=== PATIENT | female | born 1960 | race Caucasian/White ===

== ENCOUNTER 2019-10-19 14:00 | Outpatient (RCR) | payer BC, OTHER, SELFPAY ==
[2019-07-26 12:36] VITALS: BP_SYST 90
--- NOTE | 2019-07-26 13:52 | PTOPEVAL ---
Thank you for referring Heriberto Daley to [facility]. Please review, sign, date and return this plan of care BRIGITTE. Pt seen for physical therapy evaluation due to right shoulder impairment. She demonstrates decreased shoulder range, decreased strength, increased pain and decreased UE function with daily activities. She requires additional skilled PT 2-3x/wk x 8 wk to return right UE to her PLOF. I agree with and certify that the following plan of care is medically necessary. Referring Physician Date Attending Provider: Blake Lazcano MD *PT Outpatient Evaluation Start: 07/26/19 12:39 Freq: Status: Active Protocol: Document 07/26/19 12:36 CAP (Rec: 07/26/19 13:36 CAP [id number]) Therapy Assessment Status Assessment Status Assessment Status Evaluation Outpatient Past Medical History Past Medical History Source of Past Medical History Patient Neurological History Hx Cerebrovascular Accident (CVA) Yes: 12 years Cardiovascular History Hx Hypertension Yes Musculoskeletal History Hx Other Musculoskeletal Disorders Yes: broken left foot 12/02 Endocrine History Hx Diabetes Yes Other History Hx Cancer Yes: skin cancer Evaluation Information Problem Diagnosis right shoulder lession Onset 06/30/19 Cause increased activities Additional Evaluation Detail She reports she has decreased balance and fine motor ability on left since her stroke. Subjective Information She was painting and weeding Query Text:As Reported By Patient/ the yard back in June. She felt Family like she pulled a muscle that was not getting better. She reports difficulty with reaching activities, overhead act,and donning/doffing clothing. Carrying heavy objects. Difficulty sleeping due to pain and discomfort. She has been sleeping in the recliner due to pain. 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 Pain Assessment Timing of Pain Assessment Timing of Pain Assessment Assessment Pain Scale Pain Scale Used Numeric (1 - 10) Self Report Pain Assessment Right Shoulder(s) Reported Pain Level 0 Pain Description Aching,Dull,Sharp,With Movement Pain Frequency Intermittent Greatest Pain Intensity 5 Pain Aggravating Factors ADL's,Exercise/Activity,
[2019-08-24 09:59] VITALS: BP_SYST 148
--- NOTE | 2019-08-24 16:03 | PTOPEVAL ---
Thank you for referring Heriberto Daley to [facility]. Please review, sign, date and return this plan of care BRIGITTE. Pt has received 10 therapy visits to address right shoulder impairments. She is progressing with shoulder range, strength and UE function with daily activities. She requires additional skilled therapy to address remaining impairments and achieve maximal UE function with ADL's and IADL's. Cont PT 2-3x/wk x 4-6 wk I agree with and certify that the following plan of care is medically necessary. Referring Physician Date Admitting Provider: Attending Provider: Blake Lazcano MD Referring Provider: *PT Outpatient Evaluation Start: 07/26/19 12:39 Freq: Status: Active Protocol: Document 08/24/19 09:59 CAP (Rec: 08/24/19 10:44 CAP [email or web address]) Therapy Assessment Status Assessment Status Assessment Status Re-evaluation Problem Diagnosis right shoulder lession Onset 06/30/19 Additional Evaluation Detail She reports she has decreased balance and fine motor ability on left since her stroke. Subjective Information She is able to reach farther Query Text:As Reported By Patient/ with her right arm for daily Family activities. She has improved pain at rest, but sharp pain with reaching overhead. She does have issues with lifting resistance especially overhead. She is performing household work and yard work. She has increased pain with turning the lawnmower. She reports increased pain and limitations with lifting objects. Difficulty sleeping due to pain and discomfort. She will still sleep in the recliner for short periods. She is up at least 1x/ night due to pain . Pain Assessment Pain Scale Pain Scale Used Numeric (1 - 10) Self Report Pain Assessment Right Shoulder(s) Reported Pain Level 0 Pain Description Numbness,Radiating,Sharp, Tightness,With Movement Pain Radiation Right Arm Pain Frequency Chronic,Intermittent Greatest Pain Intensity 6 Pain Aggravating Factors ADL's,Prolonged Position,Other Pain Aggravating Factors Other Pain Aggravating Factors sleeping on right side Pain Behaviors
[2019-10-02 10:04] VITALS: BP_SYST 155
--- NOTE | 2019-10-02 16:43 | PTOPEVAL ---
Thank you for referring Heriberto Daley to [facility].? The patient is scheduled to be seen for therapy? 2 x/week for 4 weeks. Please review, sign, date and return this plan of care BRIGITTE. I agree with and certify that the following plan of care is medically necessary. Referring Physician Date Attending Provider: Blake Lazcano MD Referring Provider: Physical therapy progress note *PT Outpatient Evaluation Start: 07/26/19 12:39 Freq: Status: Active Protocol: Document 10/02/19 10:04 LIZETTE (Rec: 10/02/19 10:57 LIZETTE [email or web address]) Therapy Assessment Status Assessment Status Assessment Status Re-evaluation Outpatient Past Medical History Past Medical History Source of Past Medical History Patient Neurological History Hx Cerebrovascular Accident (CVA) Yes: 12 years Cardiovascular History Hx Hypertension Yes Musculoskeletal History Hx Other Musculoskeletal Disorders Yes: broken left foot 12/02 Endocrine History Hx Diabetes Yes Other History Hx Cancer Yes: skin cancer Evaluation Information Problem Diagnosis right shoulder lession Onset 06/30/19 Cause increased activities Additional Evaluation Detail She reports she has decreased balance and fine motor ability on left since her stroke. Subjective Information She cont to report pain in the Query Text:As Reported By Patient/ tricep region that feels like Family a block when she tries to move the arm. She reports improved range with reaching in all directions. She has sharp pain with overhead reaching in abd position. She reports increased muscle pain and nerve pain with prolonged overhead activities. She is able to perform right UE motions for ADL's without significant pain. Difficulty sleeping due to pain and discomfort. She will still sleep in the recliner for short periods. She is up at least 1x/ night due to pain . Pain Assessment Timing of Pain Assessment Timing of Pain Assessment Re-assessment Pain Scale Pain Scale Used Numeric (1 - 10) Self Report Pain Assessment Right Shoulder(s) Reported Pain Level 0 Pain Description Aching,Shooting,Soreness,
--- NOTE | 2019-11-14 09:59 | PCPTNOTE ---
Admitting Provider: Attending Provider: Blake Lazcano MD Patient:Heriberto Daley Date of :1960 Discharge Note Patient has not returned for any further treatments since 10/19/2019, therefore she will be discharged at this time. Patient?s initial visit was on 07/26/2019 12:30 and she had a total of 26 visits. She continued to demonstrates significant impairment of the shoulder with range, strength and performance with UE function. The goals have been partially met at time of discharge. Thank you for referring this patient to [facility]. Please review, sign, date and return this discharge summary BRIGITTE. I have been updated about the patient's current status and I agree with discharge from the above service at this time. Referring Physician Date
== END 2019-10-24 23:59 | disposition home or self-care (01) ==
LOC: ANHPT 14:00
PROVIDERS: PCP Orthopaedic Surgery; Visit Provider Orthopaedic Surgery
DX: M75.81 Other shoulder lesions, right shoulder (principal)
CPT/HCPCS: 97014; 97110; 97112; 97140; 97162; G0283

== ENCOUNTER 2020-01-16 14:30 | Outpatient (RCR) | payer BC, OTHER, SELFPAY ==
[2019-12-13 10:35] VITALS: BMI 40.8
[2019-12-13 10:40] VITALS: BMI 40.8
== END 2020-01-18 16:13 | disposition home or self-care (01) ==
LOC: ANHDMC 14:30
PROVIDERS: PCP Family Medicine; Visit Provider Family Medicine
DX: E11.22 Type 2 diabetes mellitus with diabetic chronic kidney disease (principal); E11.65 Type 2 diabetes mellitus with hyperglycemia; Z71.89 Other specified counseling; Z71.3 Dietary counseling and surveillance
CPT/HCPCS: 97802; G0108; G0109

== ENCOUNTER 2020-06-03 10:54 | Outpatient (RCR) | payer BC, OTHER, SELFPAY | END 2020-06-06 10:23 | disposition home or self-care (01) | LOC: ANHDMC 10:54 | PROVIDERS: Visit Provider Family Medicine | DX: E11.22 Type 2 diabetes mellitus with diabetic chronic kidney disease (principal); Z71.89 Other specified counseling | CPT/HCPCS: G0108 ==

== ENCOUNTER 2020-10-31 20:47 | Emergency (ER) | payer BC, OTHER, SELFPAY ==
--- NOTE | ~2020-10-31 | XR_ITS ---
XR toe 1st LT min 2V DATE: 10/31/2020 21:24 INDICATION: Smashing injury and laceration of first digit TECHNIQUE: 3 views COMPARISON: None FINDINGS: Prominent plantar calcaneal enthesopathy is incidentally noted. 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 No fracture or dislocation, periostea l reaction or bone destruction, subcutaneous emphysema or radiopaque foreign body of the first digit. IMPRESSION: No fracture or dislocation of first digit Reviewed, dictated and finalized at location A.
[2020-10-31 20:50] VITALS: BP 149/73; PULSE 73; RESP 18; TEMP 36.7; O2SAT 97
--- NOTE | 2020-10-31 21:30 | ED.WOUNDLAC ---
HPI - Wound/Laceration General Chief Complaint: Wound/Laceration Stated Complaint: left foot cut Time Seen by Provider: 10/31/20 21:12 Source: patient Mode of arrival: ambulatory Limitations: no limitations History of Present Illness HPI narrative: This is a 60 year old female that presents to the ER for laceration to the left great toe sustained just prior to arrival. Reports she dropped a toilet lid. Reports it broke and cut her left great toe. Reports she is up-to-date on tetanus. Denies decreased range of motion or numbness. Related Data Home Medications Medication Instructions Recorded Confirmed Ca 600 mg-D3 800 unit-magnes 40 1 tablet PO DAILY 07/25/19 05/06/20 se-wibx-tko-chinmay-boron chewable tablet allopurinol 100 mg tablet 100 mg PO DAILY 07/25/19 05/06/20 amlodipine 10 mg tablet 10 mg PO DAILY 07/25/19 05/06/20 aspirin 81 mg tablet,delayed 81 mg PO DAILY 07/25/19 05/06/20 release clopidogrel 75 mg tablet 75 mg PO DAILY 07/25/19 05/06/20 colchicine 0.6 mg capsule 0.6 mg PO DAILY 07/25/19 05/06/20 dulaglutide 1.5 mg/0.5 mL 1.5 mg SUB-Q WEEKLY 07/25/19 05/06/20 subcutaneous pen injector ezetimibe 10 mg tablet 10 mg PO DAILY 07/25/19 05/06/20 glimepiride 4 mg tablet 4 mg PO QAM 07/25/19 05/06/20 insulin degludec 100 unit/mL (3 70 unit SUB-Q DAILY ml 07/25/19 05/06/20 mL) subcutaneous pen isosorbide dinitrate 30 mg tablet 30 mg PO BID 07/25/19 05/06/20 loratadine 10 mg tablet 10 mg PO DAILY 07/25/19 05/06/20 metoprolol succinate 50 mg 50 mg PO DAILY 07/25/19 05/06/20 tablet,extended release 24 hr norethindrone acetate 5 mg tablet 5 mg PO DAILY 07/25/19 05/06/20 simvastatin 20 mg tablet 20 mg PO DAILY 07/25/19 05/06/20 valsartan 320 mg tablet 320 mg PO DAILY 07/25/19 05/06/20 acetaminophen 650 mg 650 mg PO Q8H 11/08/19 05/06/20 tablet,extended release Allergies Allergy/AdvReac Type Severity Reaction Status Date / Time No Known Allergies Allergy Verified 10/31/20 20:54 Review of Systems Review of Systems: CONSTITUTIONAL: Denies fever SKIN: Reports laceration MUSCULOSKELETAL: Denies joint pain, or myalgia. NEUROLOGIC: Denies numbness All systems reviewed & are unremarkable except as noted in HPI and below PMFSH Past Medical History Medical History (Updated 10/31/20 @ 22:58 by Melania Love PA-C) Diabetes last A1c 8.1 on 09/21/19 Foot fracture, left Gout Heart disease History of basal cell cancer Hypertension Kidney disease Stroke Surgical History Surgical History H/O: hysterectomy History of cholecystectomy History of meniscectomy of left knee Hx of removal of ovary Family History Family History Mother Hypertension Kidney disease Father Hypertension Heart disease Social History Social History Smoking status: Never smoker Alcohol intake: current Alcohol use details: occasional Gender identity (if verbalized by the patient): Female Spiritual care concerns: No Exam Narrative: GENERAL: Well-appearing, well-nourished, and in no acute distress. HEAD: Normocephalic, atraumatic. EYES: EOMI. EXTREMITIES: Normal range of motion. No edema or obvious deformity. 1.5cm linear laceration into subcutaneous tissue over the left great toe dorsal surface SKIN: Warm, dry, no rash. NEURO: No focal deficits. Alert and oriented x3. PSYCH: Normal mood and affect Course Vital Signs Vital signs: Vital Signs Temperature 98.0 F 10/31/20 20:50 Pulse Rate 73 10/31/20 20:50 Respiratory Rate 18 10/31/20 20:50 Blood Pressure 149/73 H 10/31/20 20:50 Pulse Oximetry 97 10/31/20 20:50 Temperature 98.0 F 10/31/20 20:50 Pulse Rate 73 10/31/20 20:50 Respiratory Rate 18 10/31/20 20:50 Blood Pressure 149/73 H 10/31/20 20:50 Pulse Oximetry 97 10/31/20 20:50 Procedures Jaspreet
[2020-10-31] MEDS: LIDOCAINE HCL 1% LOCAL INJ 20 ML VIAL INFILTRATE (22:26)
[2020-10-31 23:19] VITALS: BP 155/80; PULSE 72; RESP 18; O2SAT 96
== END 2020-10-31 23:20 | disposition home or self-care (01) ==
PROVIDERS: Emergency Provider Emergency Medicine
DX: S91.112A Laceration without foreign body of left great toe without damage to nail, initial encounter (principal); E11.9 Type 2 diabetes mellitus without complications; I10 Essential (primary) hypertension; N28.9 Disorder of kidney and ureter, unspecified; Z86.73 Personal history of transient ischemic attack (TIA), and cerebral infarction without residual deficits; Z79.899 Other long term (current) drug therapy; Z79.82 Long term (current) use of aspirin; W26.8XXA Contact with other sharp object(s), not elsewhere classified, initial encounter
CPT/HCPCS: 12001; 73660; 99283

== ENCOUNTER 2021-11-02 10:00 | Outpatient (RCR) | payer BC, OTHER, SELFPAY ==
--- NOTE | 2021-08-10 15:36 | PTOPEVAL ---
PHYSICAL THERAPY EVALUATION AND PLAN OF CARE 08-10-21 Thank you for referring Heriberto Daley to [facility].? She is scheduled to be seen for therapy? 2x/week for 3 weeks. Please review, sign, date and return this plan of care BRIGITTE. I agree with and certify that the following plan of care is medically necessary. Referring Physician Date Attending Provider: Blake Lazcano MD Past Medical History Source of Past Medical History Recalled from Previous Visit, Confirmed with Patient/Family Neurological History Hx Cerebrovascular Accident (CVA) Yes: L UE and LE numb/ decreased sensation Cardiovascular History Hx Hypertension Yes: meds Respiratory History Hx Respiratory Disorders No Significant History Gastrointestinal History Hx Gastrointestinal Disorders No Significant History Musculoskeletal History Hx Other Musculoskeletal Disorders Yes: broken left foot casted; R frozen shoulder Endocrine History Hx Diabetes Yes: meds HEENT History Hx HEENT Disorders No Significant History Other History Hx Cancer Yes: skin cancer, 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 with dry cleaning teacher every 6 months Hx Other Medical Conditions Yes: have lost 30# wt with exercise and diet monitor Evaluation Information Diagnosis L shoulder adhesive capsulitis Onset Mar 2021 Subjective Information gradual increase in shoulder Query Text:As Reported By Patient/ pain, no trauma or injury to Family shoulder; have been trying some exercises, but could not get it moving; Previous Treatments Previous Treatments For This Problem had treatment about 2 yr ago for R shoulder Prior Level of Function Activity Level (Last 3 Months) Occupation not working outside of home Hand Dominance Right Activity of Daily Living Ability Independent Indoor/Home Mobility Independent Community Mobility Independent Stairs Ability Independent Functional Cognition (Planning, Shopping Independent , Taking Medications) Cooking Yes Cleaning Yes Laundry Yes Shopping Yes Driving Yes Comments Additional Prior Level of Function decreased lifting and home Comments tasks ability due to L shoulder pain; is doing fitness exercises with a sharepoint trainer for classes Pain Assessment Pain Scale Pain Scale Used Numeric (1 - 10) Self Report Pain Assessment Left Shoulder(s) Repo
[2021-08-31 10:15] VITALS: BP_SYST 125
--- NOTE | 2021-08-31 10:54 | PTOPEVAL ---
PHYSICAL THERAPY REEVALUATION AND UPDATED PLAN OF CARE 08-31-21 Refer to the clinical summary below, for her status today, compared to the initial evaluation. Continue PT treatment 2x/wk for 4 weeks. Thank you for referring Heriberto Daley to [facility].? Please review, sign, date and return this updated plan of care BRIGITTE. I agree with and certify that the following plan of care is medically necessary. Referring Physician Date Attending Provider: Blake Lazcano MD Subjective Information Heriberto reports: shoulder is Query Text:As Reported By Patient/ still hurting and limits her Family use of arm; is doing her home exercises and is using her arm at home; does her fitness exercises with modifications; dry needling 2x- did not really help; Pain Assessment Pain Scale Pain Scale Used Numeric (1 - 10) Self Report Pain Assessment Left Shoulder(s) Reported Pain Level 2 Pain Description Aching,Dull Radicular Pain Location inhibits me from doing things; deep into arm pit Pain Frequency Chronic,Continuous Other Pain Description anterior shoulder and lateral shoulder Lowest Pain Intensity 1 Greatest Pain Intensity 10 Pain Aggravating Factors Exercise/Activity Other Pain Aggravating Factors side movements of arm; locks and tightens up when reach to side Additional Pain Score Comments awaken at least 1x/night due to shoulder ache, sit up in recliner and get it settled down; can half lie onto L side for about 30 minutes; Interventions Used Interventions Used By Clinicians Exercise Pain Relief Interventions Used By Heat,Ice,Position Change Patient Other Alleviating Interventions stretching arm; take tylenol to help with sleeping; Upper Extremity Range of Motion Scapular/ Shoulder Range of Motion Left Shoulder Flexion - Active 120 Shoulder Flexion - Passive 150 Shoulder Extension - Active 25 Shoulder Abduction - Active 65 Shoulder Abduction - Passive 125 Shoulder Medial Rotation - Passive 65 Shoulder Medial Rotation - Active palm to L SIJ Query Text:Reach Behind the Back Shoulder Lateral Rotation - Passive 40 Shoulder Lateral Rotation - Active palm behind ear Query Text:Reach Behind the Head Scapular/Shoulder Range of Motion most pain with IR; Comments active in standing; passive in supine, with rot
--- NOTE | 2021-09-02 17:31 | PCPTNOTE ---
Patient treatment and note was performed by student RESIDENTIAL TREATMENT SPECIALIST with supervision and elevation by licensed RESIDENTIAL TREATMENT SPECIALIST, Anne-Marie Fox.
--- NOTE | 2021-09-11 14:42 | PCPTNOTE ---
On 09/11/21, the student, Fausto Gaitan, provided care and completed [facility] documentation on this patient. I have reviewed the student's documentation and agree with the findings.
[2021-09-28 11:05] VITALS: BP_SYST 125
--- NOTE | 2021-09-28 11:47 | PTOPEVAL ---
PHYSICAL THERAPY RE-EVALUATION AND UPDATED PLAN OF CARE 09-28-21 Refer to the clinical summary for a comparison for today to her last reevaluation. She has made slight improvements with her ROM and strength. Continue PT treatment 2-3 x/wk for 5 weeks. Thank you for referring Heriberto Daley to [facility].? Please review, sign, date and return this updated plan of care [facility]. I agree with and certify that the following plan of care is medically necessary. Referring Physician Date Attending Provider: Blake Lazcano MD Subjective Information Heriberto reports: saw dr cardenas Query Text:As Reported By Patient/ weeks ago, discussed doing a Family manipulation for her shoulder; feels like doing a little better with moving, but it then tightens back up; Pain Assessment Pain Scale Pain Scale Used Numeric (1 - 10) Self Report Pain Assessment Pain Description Aching,Dull,Soreness,Throbbing Pain Frequency Chronic,Continuous Lowest Pain Intensity 2 Greatest Pain Intensity 10 Other Pain Aggravating Factors reaching up to do hair and reaching behind back Pain Score Pain Score 2: Self Report Additional Pain Score Comments Quick DASH score of % limitation; awaken 1-2x/night due to shoulder pain; can half- lie on L side about 30 min to change position/ stretch back Interventions Used Interventions Used By Clinicians Education,Exercise Pain Relief Interventions Used By Heat,Ice,Inactivity/Rest, Patient Position Change Other Alleviating Interventions tylenol PRN Upper Extremity Range of Motion Scapular/ Shoulder Range of Motion Left Shoulder Flexion - Active 120 Shoulder Flexion - Passive 150 Shoulder Abduction - Active 80 Shoulder Abduction - Passive 125 Shoulder Medial Rotation - Passive 65 Shoulder Medial Rotation - Active palm to sacrum Query Text:Reach Behind the Back Shoulder Lateral Rotation - Passive 35 Shoulder Lateral Rotation - Active palm to back of head Query Text:Reach Behind the Head Scapular/Shoulder Range of Motion most pain with IR; Comments active in standing; passive in supine, with rotations- shoulder abduction to 45'; Gross Upper Extremity Strength Comments functional strength of L UE: warm up on pully x 3 min: L shoulder in standing, with hand wt: -- flexion to 90-95', 2# x 10 reps - abduction to 40-45', 2# x 10
[2021-11-02 10:00] VITALS: BP_SYST 115
--- NOTE | 2021-11-02 10:50 | PTOPPROG ---
Assessment and note entered by Antoinette Sandoval, PT Evaluation Information Assessment Status Progress Subjective Information Heriberto reports: feel like shoulder is better- pain reduced, more mobility in shoulder; still hurts and bothers her with sleeping; frustrated when not able to use the L arm with home tasks; is working with a certified personal finance counselor for overall fitness; Assessment PT Clinical Summary Heriberto has received 29 PT sessions, for the diagnosis of L frozen shoulder. Compared to the last reevaluation: pain has decreased from 2-10/10 to 1-8/10; reported sleeping tolerance, time able to lie on her L side and Quick DASH self assessment are the same; She has improved with active and passive shoulder flexion and abduction motions; IR and ER are the same ROM, with the most painful motion for her is IR. Heriberto reports she is able to use her L arm more and has more mobility with it, but cannot lift much with L arm. Discussed with her to follow up with . She is going to call for appointment. HOLD PT until follow up appointment and new orders received if indicated to continue PT. Plan of Care PT Services Indicated Yes These treatments will address the objective and functional deficits as defined above. The patient will be advanced safely and appropriately in order for the patient to progress towards his/her prior level of function. Additional exercises will be introduced and as well as a comprehensive home exercise program upon discharge, if needed, ?to ensure carryover of functional gains achieved in the clinic. This treatment plan has been reviewed and agreement upon by the patient.
--- NOTE | 2021-11-23 15:48 | PCPTNOTE ---
PHYSICAL THERAPY DISCHARGE 11-23-21 Attending Provider: Blake Lazcano MD Patient:Heriberto Daley Date of :1960 Mrs. Mckeon has not returned for any further treatments since the reevaluation on 11/02/2021, therefore she will be discharged at this time. Refer to that report for her status at the last session. Thank you for referring Heriberto to [facility].
== END 2021-11-08 23:59 | disposition home or self-care (01) ==
LOC: ANHPT 10:00
PROVIDERS: Visit Provider Orthopaedic Surgery
DX: M75.00 Adhesive capsulitis of unspecified shoulder (principal)
CPT/HCPCS: 97014; 97110; 97112; 97140; 97161; 97530; G0283

== ENCOUNTER → 2022-06-04 16:24 | Outpatient (CLI) | payer BC, OTHER, SELFPAY ==
--- NOTE | ~2022-06-04 | XR_ITS ---
Right Hand Technique: PA, oblique, and lateral views were obtained. Clinical History: Arthralgia Findings: No acute fracture or dislocation is seen. Osseous alignment is anatomic. Joint spaces are p reserved. Soft tissues are unremarkable. Impression: Unremarkable right hand. Reviewed, dictated and finalized at location . Impression: Unremarkable right hand.
--- NOTE | ~2022-06-04 | XR_ITS ---
Left Hand Technique: PA, oblique, and lateral views were obtained. Clinical History: Arthralgia Findings: No acute fracture or dislocation is seen. Osseous alignment is anatomic. Joint spaces are p reserved. Soft tissues are unremarkable. Impression: Unremarkable left hand. Reviewed, dictated and finalized at location . Impression: Unremarkable left hand.
--- NOTE | ~2022-06-04 | XR_ITS ---
Left foot Technique: AP, oblique, and lateral views were obtained. Clinical History: Arthralgia Findings: No acute fracture or dislocation is seen. Old, healed fracture deformity of the fifth metat arsal shaft noted. Osseous alignment is anatomic. Joint spaces are preserved without erosive or degen erative change. Soft tissues are unremarkable. Impression: Old, healed fracture deformity of fifth metatarsal shaft. No other significant findings. Reviewed, dictated and finalized at location . Impression: Old, healed fracture deformity of fifth metatarsal shaft. No other significant findings.
--- NOTE | ~2022-06-04 | XR_ITS ---
Right foot Technique: AP, oblique, and lateral views were obtained. Clinical History: Arthralgia Findings: No acute fracture or dislocation is seen. Osseous alignment is anatomic. Joint spaces are p reserved without erosive or degenerative change. Soft tissues are unremarkable. Impression: Unremarkable right foot radiographs. Reviewed, dictated and finalized at [facility]. Impression: Unremarkable right foot radiographs.
== END ==
PROVIDERS: Visit Provider Internal Medicine
DX: M25.50 Pain in unspecified joint (principal); M1A.9XX0 Chronic gout, unspecified, without tophus (tophi)
CPT/HCPCS: 73130; 73630